=== PATIENT | female | born 1960 | race Caucasian/White ===

== ENCOUNTER → 2016-10-22 | Outpatient (CLI) | payer BC ==
--- NOTE | 2016-10-22 12:15 | DIAGNOSTIC IMAGING REPORT ---
RIGHT FOOT 3 VIEWS CLINICAL HISTORY: Psoriatic arthropathy. FINDINGS: 3 views of the right foot are compared to study dated 06/11/2013. The skeletal structures appear osteopenic. No fracture is seen. Minimal arthritic change is present at the first metatarsophalangeal joint. The joint spaces of the foot are otherwise preserved. No erosive change is identified. The overlying soft tissues are within normal limits. IMPRESSION: No acute bony abnormality is seen in the right foot. Electronically signed by: Krzysztof Bradshaw M.D. 10/22/2016 12:14 PM Dictated Date/Time: 10/22/2016 12:13 PM
--- NOTE | 2016-10-22 12:24 | DIAGNOSTIC IMAGING REPORT ---
LEFT FOOT 3 VIEWS HISTORY: OTHER PSORIATIC ARTHROPATHY COMPARISON: None. FINDINGS: There is no fracture or dislocation. Soft tissues are unremarkable. No radiopaque foreign bodies. Small plantar heel spur. No erosions identified. The Lisfranc joint is well aligned. Mild osteoarthritis of the first MTP joint. IMPRESSION: Mild osteoarthritis at the first MTP joint. No erosions identified. Electronically signed by: Nico Colbert M.D. 10/22/2016 12:22 PM Dictated Date/Time: 10/22/2016 12:21 PM
== END | disposition home or self-care (01) ==
LOC: C.RAD1850 11:32
PROVIDERS: ATTEND Internal Medicine Rheumatology
DX: L40.59 Other psoriatic arthropathy (principal)

== ENCOUNTER → 2016-10-22 | Outpatient (CLI) | payer BC ==
--- NOTE | 2016-10-22 16:08 | MAMMOGRAPHY REPORT ---
BILATERAL DIGITAL SCREENING MAMMOGRAM TOMOSYNTHESIS WITH CAD: 10/22/2016 CLINICAL HISTORY: Routine screening. TECHNIQUE: Breast tomosynthesis in addition to standard 2D mammography was performed. Current study was also evaluated with a Computer Aided Detection (CAD) system. COMPARISON: Comparison is made to exams dated: 08/08/2015 mammogram, 02/26/2014 mammogram - [facility], 10/13/2012 mammogram, 05/28/2011 mammogram, 05/21/2010 mammogram, and 05/08/2009 [facility]. BREAST COMPOSITION: There are scattered areas of fibroglandular density in both breasts. FINDINGS: No suspicious masses, calcifications, or areas of architectural distortion are noted in ei ther breast. There has been no significant interval change compared to prior exams. IMPRESSION: ACR BI-RADS CATEGORY 1: NEGATIVE There is no mammographic evidence of malignancy. A 1 year screening mammogram is recommended. The pa tient will receive written notification of the results. Approximately 10% of breast cancers are not detected with mammography. A negative mammographic report should not delay biopsy if a clinically suggestive mass is present. Lou Stearns M.D. ah/:10/22/2016 15:48:51 Pick Pulling Machine Operator: John HOOVER(R)(M), [facility] letter sent: Normal 1/2 BI-RADS Code: ACR BI-RADS Category 1: Negative
== END | disposition home or self-care (01) ==
LOC: C.MAMM 11:01
PROVIDERS: ATTEND Nurse Practitioner Family
DX: Z12.31 Encounter for screening mammogram for malignant neoplasm of breast (principal)

== ENCOUNTER → 2017-02-11 | Outpatient (CLI) | payer BC ==
[~2017-02-11] MED LIST: SINCALIDE INJ 1.8 MCG in SODIUM CHLORIDE 0.9% 100ML 100 ML IV ONE
--- NOTE | 2017-02-11 14:59 | DIAGNOSTIC IMAGING REPORT ---
NUCLEAR MEDICINE HEPATOBILIARY SCAN WITH GALLBLADDER EJECTION FRACTION CLINICAL HISTORY: Right upper quadrant abdominal pain. COMPARISON: Right upper quadrant ultrasound June 23, 2015. TECHNIQUE: 5.5 mCi of technetium 99m Choletec IV was injected at 12:55 PM on February 11, 2017. Immediately following injection, imaging of the abdomen was carried out for 60 minutes in the anterior projection. At this time, 1.8 mcg of Sincalide was injected IV as per protocol. Imaging was performed for an additional 45 minutes to estimate a gallbladder ejection fraction. FINDINGS: Hepatic uptake of radiotracer is prompt and homogeneous. Activity is first identified within the common bile duct and small bowel at 10 minutes. Gallbladder activity is first identified at 25 minutes. Following injection of sincalide, normal gallbladder emptying was noted with an ejection fraction of 53%. Normal is greater than 30-35%. IMPRESSION: 1. Normal hepatobiliary scan. No evidence of acute or chronic cholecystitis. 2. Normal gallbladder ejection fraction of 53%. Electronically signed by: Jakub Vega M.D. 02/11/2017 2:58 PM Dictated Date/Time: 02/11/2017 2:56 PM
== END | disposition home or self-care (01) ==
LOC: C.NUCL 12:35
PROVIDERS: ATTEND Internal Medicine Gastroenterology
DX: R10.11 Right upper quadrant pain (principal)